=== PATIENT | female | born 1980 | race Caucasian/White ===

== ENCOUNTER 2016-11-06 16:38 | Emergency (ER) | payer SELFPAY ==
--- NOTE | 2016-11-06 17:43 | EDM.PDOC ---
ED HPI GENERAL MEDICAL PROBLEM - General Chief Complaint: General Stated Complaint: PT LIGHTHEADED Time Seen by Provider: 11/06/16 17:20 Source of Information: Reports: Patient History Limitations: Reports: No Limitations - History of Present Illness INITIAL COMMENTS - FREE TEXT/NARRATIVE: History of present illness: [36-year-old female comes in complaining of dizziness that subsequently led to nausea. Patient indicated that she felt the room was spinning and that when she moved her head it made it worse.] Review of systems: As per history of present illness and below otherwise all systems reviewed and negative. Past medical history: As per history of present illness and as reviewed below otherwise noncontributory. Surgical history: As per history of present illness and as reviewed below otherwise noncontributory. Social history: No reported history of drug or alcohol abuse. Family history: As per history of present illness and as reviewed below otherwise noncontributory. Physical exam: HEENT: Atraumatic, normocephalic, pupils reactive, negative for conjunctival pallor or scleral icterus, mucous membranes moist, bilateral TMs noted to be bulging with pearly pink with good light reflex otherwise, mild oral pharyngeal erythema with obvious postnasal drainage, neck supple, nontender, trachea midline. Lungs: Clear to auscultation, breath sounds equal bilaterally, chest nontender. Heart: S1S2, regular, negative for clicks, rubs, or JVD. Abdomen: Soft, nondistended, nontender. Negative for masses or hepatosplenomegaly. Negative for costovertebral tenderness. Pelvis: Stable nontender. Genitourinary: Deferred. Rectal: Deferred. Extremities: Atraumatic, negative for cords or calf pain. Neurovascular unremarkable. Neuro: Awake, alert, oriented. Cranial nerves II through XII unremarkable. Cerebellum unremarkable. Motor and sensory unremarkable throughout. Exam nonfocal. Diagnostics: [] Therapeutics: [] Impression: [Vertigo, nausea] Plan: [Meclizine, Antivert] Definitive disposition and diagnosis as appropriate pending reevaluation and review of above. head Pain Score (Numeric/FACES): 6 - Related Data Allergies Allergy/AdvReac Type Severity Reaction Status Date / Time No Known Allergies Allergy Verified 11/06/16 16:49 Home Meds: Home Meds Cyanocobalamin (Vitamin B-12) [B-12] 500 mcg PO 12/25/15 [History] ClonazePAM [KlonoPIN] 0.5 mg PO ASDIRECTED 11/06/16 [History] Fexofenadine [Ayse] 0 mg PO DAILY 11/06/16 [History] Meclizine [Antivert] 25 mg PO Q6H PRN #30 tablet 11/06/16 [Rx] Ondansetron [Zofran] 4 mg PO Q6H PRN #30 tab 11/06/16 [Rx] buPROPion HCl [Wellbutrin Xl] 300 mg PO DAILY 11/06/16 [History] Past Medical History - Past Health History Medical/Surgical History: Denies Medical/Surgical History Cardiovascular History: Reports: None Respiratory History: Reports: None Gastrointestinal History: Reports: None Genitourinary History: Reports: None Musculoskeletal History: Reports: None Neurological History: Reports: Migraines Psychiatric History: Reports: Anxiety, Depression Endocrine/Metabolic History: Reports: None Hematologic History: Reports: None Oncologic (Cancer) History: Reports: None Dermatologic History: Reports: None - Infectious Disease History Infectious Disease History: Reports: Chicken Pox - Past Surgical History HEENT Surgical History: Reports: Tonsillectomy Female Surgical History: Reports: Breast Reduction, Hysterectomy Social & Family History - Family History Family Medical History: Noncontributory - Tobacco Use Smoking Status *Q: Current Every Day Smoker Years of Tobacco use: 10 Packs/Tins Daily: 1 - Recreational Drug Use Recreational Drug Use: No ED ROS GENERAL - Review of Systems Review Of Systems: See Below (History of present illness) ED EXAM, GENERAL - Physical Exam Exam: See Below (See history of present illness) Course - Vital Signs Last Recorded V/S: Last Vital Signs Temp 36.9 C 11/06/16 16:52 Pulse 79 11/06/16 16:52 Resp 18 11/06/16 16:52 BP 111/74 11/06/16 16:52 Pulse Ox 96 11/06/16 16:52 Departure - Departure Time of Disposition: 17:41 Disposition: Home, Self-Care 01 Condition: Good Clinical Impression: Vertigo, Eustachian tube dysfunction - Discharge Information Prescriptions: Meclizine [Antivert] 25 mg PO Q6H PRN #30 tablet PRN Reason: vertigo Ondansetron [Zofran] 4 mg PO Q6H PRN #30 tab PRN Reason: Nausea Forms: ED Department Discharge Additional Instructions: The following information is given to patients seen in the emergency department who are being discharged to home. This information is to outline your options for follow-up care. We provide all patients seen in our emergency department with a follow-up referral. The need for follow-up, as well as the timing and circumstances, are variable depending upon the specifics of your emergency department visit. If you don't have a primary care physician on staff, we will provide you with a referral. We always advise you to contact your personal physician following an emergency department visit to inform them of the circumstance of the visit and for follow-up with them and/or the need for any referrals to a consulting specialist. The emergency department will also refer you to a specialist when appropriate. This referral assures that you have the opportunity for follow-up care with a specialist. All of these measure are taken in an effort to provide you with optimal care, which includes your follow-up. Under all circumstances we always encourage you to contact your private physician who remains a resource for coordinating your care. When calling for follow-up care, please make the office aware that this follow-up is from your recent emergency room visit. If for any reason you are refused follow-up, please contact the [facility] Emergency Department at and asked to speak to the emergency department charge nurse. Take medication as directed Follow-up with PCP in 1-2 days Return to ED as needed as discussed
== END 2016-11-06 17:54 | disposition home or self-care (01) ==
LOC: MW.ED 16:38
CPT/HCPCS: 99282; 99283

== ENCOUNTER 2017-01-24 23:01 | Emergency (ER) | payer SELFPAY ==
[2017-01-24] MEDS ORDERED: Amoxicillin 500 MG Cap PO ONE (23:20)
--- NOTE | 2017-01-24 23:23 | EDM.PDOC ---
ED HPI GENERAL MEDICAL PROBLEM - General Chief Complaint: ENT Problem Stated Complaint: PT HAS FLUID IN EAR Time Seen by Provider: 01/24/17 23:18 Source of Information: Reports: Patient, RN - History of Present Illness INITIAL COMMENTS - FREE TEXT/NARRATIVE: she presents with recent ear pain and sinus pressure and stuffy nose she has noted fever no vomiting Bilateral Ear Pain Score (Numeric/FACES): 5 - Related Data Allergies Allergy/AdvReac Type Severity Reaction Status Date / Time No Known Allergies Allergy Verified 01/24/17 23:15 Home Meds: Home Meds ClonazePAM [KlonoPIN] 0.5 mg PO DAILY PRN 11/06/16 [History] Past Medical History - Past Health History Medical/Surgical History: Denies Medical/Surgical History Cardiovascular History: Reports: None Respiratory History: Reports: None Gastrointestinal History: Reports: None Genitourinary History: Reports: None Musculoskeletal History: Reports: None Neurological History: Reports: Migraines Psychiatric History: Reports: Anxiety, Depression Endocrine/Metabolic History: Reports: None Hematologic History: Reports: None Oncologic (Cancer) History: Reports: None Dermatologic History: Reports: None - Infectious Disease History Infectious Disease History: Reports: Chicken Pox - Past Surgical History HEENT Surgical History: Reports: Tonsillectomy Female Surgical History: Reports: Breast Reduction, Hysterectomy Social & Family History - Family History Family Medical History: Noncontributory - Tobacco Use Smoking Status *Q: Current Every Day Smoker Years of Tobacco use: 10 Packs/Tins Daily: 1 - Recreational Drug Use Recreational Drug Use: No ED ROS ENT - Review of Systems Review Of Systems: See Below (as per HPI; no other complaints) ED EXAM, ENT - Physical Exam Exam: See Below Text/Narrative:: alert normal mentation lungs CTA oral cavity clear maxillary sinus tenderness bilaterallly Both TM's retracted ; otherwise normal Course - Vital Signs Last Recorded V/S: Last Vital Signs Temp 97.4 F 01/24/17 23:10 Pulse 89 01/24/17 23:10 Resp 17 01/24/17 23:10 BP 122/72 01/24/17 23:10 Pulse Ox 97 01/24/17 23:10 - Orders/Labs/Meds Orders: Active Orders 24 hr Category Date Time Status Amoxicillin [Amoxil] Med 01/24/17 23:20 Once 500 mg PO ONETIME ONE Medication Orders Amoxicillin (Amoxil) 500 mg PO ONETIME ONE Stop: 01/24/17 23:21 Meds: Medications Generic Name Dose Route Start Last Admin Trade Name Ernestina PRN Reason Stop Dose Admin Amoxicillin 500 mg 01/24/17 23:20 Amoxil PO 01/24/17 23:21 ONETIME ONE Departure - Departure Time of Disposition: 23:22 Disposition: Home, Self-Care 01 Condition: Good Clinical Impression: Acute maxillary sinusitis - Discharge Information Referrals: PCP,None [Primary Care Provider] - Additional Instructions: follow up if not improving over the next few days tylenol as needed for pain or fever - My Orders Last 24 Hours: My Active Orders 01/24/17 23:20 Amoxicillin [Amoxil] 500 mg PO ONETIME ONE - Assessment/Plan Last 24 Hours: My Active Orders 01/24/17 23:20 Amoxicillin [Amoxil] 500 mg PO ONETIME ONE
[2017-01-24 23:53] VITALS: BP 112/73
== END 2017-01-24 23:35 | disposition home or self-care (01) ==
LOC: MW.ED 23:01
DX: J01.00 Acute maxillary sinusitis, unspecified (principal)
CPT/HCPCS: 99283; A9270; 99282

== ENCOUNTER 2017-02-09 00:20 | Emergency (ER) | payer SELFPAY ==
[2017-02-09] MEDS ORDERED: Sodium Chloride 0.9% 1,000 ML IV ONE (00:22)
[2017-02-09] MEDS ORDERED: Ondansetron 4 MG/2 ML SDV IVPUSH ONE (00:22)
[2017-02-09] MEDS ORDERED: Morphine 2 MG/ML Syringe IVPUSH ONE (00:22)
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
[2017-02-09 01:04] LABS: CHLORIDE,CL 106 mmol/L (98-110); SODIUM,NA 140 mmol/L (136-146)
[2017-02-09] MEDS ORDERED: Morphine 10 MG/ML Syringe IV ONE (01:43)
[2017-02-09 02:58] VITALS: BP 109/63
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
--- NOTE | 2017-02-10 11:14 | CR ---
EXAM DATE: 02/09/17 PATIENT'S AGE: 36 Patient: ANNIE KNET Facility: [place], [place] Site . Site : 1980 Study: XRay Extremity Left FEMUR-02/09/2017 1:39:08 AM Ordering Physician: Doctor Moyer Final Report: INDICATION: Leg pain TECHNIQUE: Femur radiographs 2 views on 5 films COMPARISON: None FINDINGS: Bones: Alignment is normal. No acute fractures or aggressive osseous lesions seen. Joint spaces: The hip and visualized knee joints are unremarkable in appearance. Soft tissues: Unremarkable. No radiopaque foreign bodies are noted. IMPRESSION: 1. No acute osseous injuries are identified. Dictated by Jaime Reilly MD @ 02/09/2017 2:06:49 AM Dictated by: Jaime Reilly MD @ 02/09/2017 02:06:55 (Electronic Signature) Report Signed by Proxy. MARIA FARERI CHILDREN'S HOSPITALJessica
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
== END 2017-02-09 02:52 | disposition home or self-care (01) ==
LOC: MW.ED 00:20
DX: S77.12XA Crushing injury of left thigh, initial encounter (principal); S70.12XA Contusion of left thigh, initial encounter; F17.210 Nicotine dependence, cigarettes, uncomplicated; Z79.899 Other long term (current) drug therapy; W23.1XXA Caught, crushed, jammed, or pinched between stationary objects, initial encounter
CPT/HCPCS: 72170; 73552; 80053; 81001; 82550; 82553; 84484; 85025; 93005; 96361; 96374; 96375; 96376; 99283; J2270; J2405; J7040

== ENCOUNTER 2017-02-14 16:43 | Emergency (ER) | payer SELFPAY ==
[2017-02-14 17:01] VITALS: BP 117/78
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
== END 2017-02-14 18:35 | disposition home or self-care (01) ==
LOC: MW.ED 16:43
DX: S70.12XS Contusion of left thigh, sequela (principal); F17.210 Nicotine dependence, cigarettes, uncomplicated; Z79.899 Other long term (current) drug therapy; W22.8XXS Striking against or struck by other objects, sequela
CPT/HCPCS: 99283

== ENCOUNTER 2017-02-20 23:36 | Emergency (ER) | payer SELFPAY ==
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
[2017-02-21 01:03] VITALS: BP 128/82
== END 2017-02-21 00:12 | disposition home or self-care (01) ==
LOC: MW.ED 23:36
DX: S70.12XS Contusion of left thigh, sequela (principal); F17.210 Nicotine dependence, cigarettes, uncomplicated; W23 Caught, crushed, jammed or pinched in or between objects
CPT/HCPCS: 99282; 99283

== ENCOUNTER 2017-03-16 15:36 | Emergency (ER) | payer SELFPAY ==
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
[2017-03-16 16:46] VITALS: BP 130/80
== END 2017-03-16 16:45 | disposition home or self-care (01) ==
LOC: MW.ED 15:36
DX: S70.11XA Contusion of right thigh, initial encounter (principal); F17.210 Nicotine dependence, cigarettes, uncomplicated; Z79.899 Other long term (current) drug therapy; X58.XXXA Exposure to other specified factors, initial encounter
CPT/HCPCS: 99282

== ENCOUNTER 2017-06-20 07:49 | Day surgery (SDC) | payer OTHER ==
[~2017-06-20 07:49] MED LIST: Bupivacaine 25%/EPINEPHrine/PF 30 ML ONE; Midazolam 1 MG/ML 2 ML SDV ONE; Propofol 200 MG/20 ML SDV ONE; ceFAZolin/Dextrose,Iso-Osmotic 2 GM/50 ML Duplex Bag IV ONE; fentaNYL 100 MCG/2 ML SDV ONE
[2017-06-20] MEDS ORDERED: Bupivacaine 0.25%/EPINEPHrine 1:200,000 10 ML SDV INJECT ONE (08:00)
[2017-06-20] MEDS ORDERED: Acetaminophen/HYDROcodone 325-5 MG Tab PO PRN (08:00)
[2017-06-20] MEDS ORDERED: ceFAZolin 2 GM in Premix Bag 1 BAG IV ONE (08:00)
[2017-06-20] MEDS ORDERED: Lactated Ringers 1,000 ML IV SCH (08:00)
--- NOTE | 2017-06-20 08:21 | PCM.PREANE ---
Preanesthetic Assessment - Anesthesia/Transfusion/Family Hx Anesthesia History: Prior Anesthesia Without Reaction Family History of Anesthesia Reaction: No Transfusion History: Prior Transfusion Without Reaction Intubation History: Unknown - Review of Systems General: No Symptoms Pulmonary: No Symptoms Cardiovascular: No Symptoms Gastrointestinal: No Symptoms Neurological: No Symptoms Other: Reports: None - Physical Assessment Height: 1.78 m Weight: 83.915 kg ASA Class: 2 Mental Status: Alert & Oriented x3 Airway Class: Mallampati = 2 Dentition: Reports: Normal Dentition Thyro-Mental Finger Breadths: 3 Mouth Opening Finger Breadths: 3 ROM/Head Extension: Full Lungs: Clear to Auscultation, Normal Respiratory Effort Cardiovascular: Regular Rate, Regular Rhythm - Lab Values: Laboratory Last Values Urine HCG, Qual NEGATIVE (NEGATIVE) 06/20/17 07:53 - Allergies Allergies/Adverse Reactions: Allergies Allergy/AdvReac Type Severity Reaction Status Date / Time No Known Allergies Allergy Verified 06/17/17 08:25 - Blood Blood Available: No - Anesthesia Plan Pre-Op Medication Ordered: None - Acknowledgements Anesthesia Type Planned: General Anesthesia Pt an Appropriate Candidate for the Planned Anesthesia: Yes Alternatives and Risks of Anesthesia Discussed w Pt/Guardian: Yes Pt/Guardian Understands and Agrees with Anesthesia Plan: Yes PreAnesthesia Questionnaire - Past Health History Medical/Surgical History: Denies Medical/Surgical History HEENT History: Reports: None Cardiovascular History: Reports: None Respiratory History: Reports: None Gastrointestinal History: Reports: None Genitourinary History: Reports: None 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: Musculoskeletal History: Reports: Fracture Other Musculoskeletal History: hx fx rt arm Neurological History: Reports: None Psychiatric History: Reports: Anxiety, Depression Endocrine/Metabolic History: Reports: None Hematologic History: Reports: Blood Transfusion(s) Immunologic History: Reports: None Oncologic (Cancer) History: Reports: None Dermatologic History: Reports: None - Infectious Disease History Infectious Disease History: Reports: Chicken Pox - Past Surgical History Head Surgeries/Procedures: Reports: None HEENT Surgical History: Reports: Oral Surgery, Tonsillectomy Cardiovascular Surgical History: Reports: None Respiratory Surgical History: Reports: None GI Surgical History: Reports: None Female Surgical History: Reports: Breast Reduction, Hysterectomy Other Female Surgeries/Procedures: breast reduction than breast implants Endocrine Surgical History: Reports: None Neurological Surgical History: Reports: None Musculoskeletal Surgical History: Reports: None Oncologic Surgical History: Reports: None - SUBSTANCE USE Smoking Status *Q: Current Every Day Smoker (4-5 cigarettes per day) Tobacco Use Within Last Twelve Months: Cigarettes Recreational Drug Use History: No - HOME MEDS Home Medications: Home Meds Ibuprofen 800 mg PO DAILY 03/16/17 [History] ClonazePAM [KlonoPIN] 1 tab PO ASDIRECTED PRN 06/17/17 [History] - CURRENT (IN HOUSE) MEDS Current Meds: Current Medications Hydrocodone Bitart/Acetaminophen ([place] 325-5 Mg) 1 tab PO Q4H PRN PRN Reason: Pain Cefazolin Sodium/Dextrose 2 gm (/ Premix) 50 mls @ 100 mls/hr IV ONETIME ONE Stop: 06/20/17 08:29 Lactated Ringer's (Ringers, Lactated) 1,000 mls @ 500 mls/hr IV .BOLUS ALEXA Discontinued Medications Bupivacaine HCl/Epinephrine Bitart (Marcaine 0.25%/Epinephrine 1:200,000) 10 ml INJECT ONETIME ONE Stop: 06/20/17 08:01 Cefazolin Sodium/Dextrose (Ancef) Confirm Administered Dose 2 gm IV .STK-MED ONE Stop: 06/20/17 07:28 Fentanyl (Sublimaze) Confirm Administered Dose 100 mcg .ROUTE .STK-MED ONE Stop: 06/20/17 07:06 Bupivacaine HCl/Epinephrine Bitart (Sensorc Mpf 0.25%-Epi 1:057411) Confirm Administered Dose 30 mls @ as directed .ROUTE .STK-MED ONE Stop: 06/20/17 07:32 Lidocaine HCl (Xylocaine-Mpf 1%) Confirm Administered Dose 5 ml .ROUTE .STK-MED ONE Stop: 06/20/17 07:06 Midazolam HCl (Versed 1 Mg/Ml) Confirm Administered Dose 2 mg .ROUTE .STK-MED ONE Stop: 06/20/17 07:06 Propofol (Diprivan 20 Ml) Confirm Administered Dose 200 mg .ROUTE .STK-MED ONE Stop: 06/20/17 07:05
[2017-06-20] MEDS ORDERED: Dexamethasone 4 MG/ML 5 ML MDV ONE (08:51)
[2017-06-20] MEDS ORDERED: Ondansetron 4 MG/2 ML SDV ONE (08:51)
[2017-06-20] MEDS ORDERED: fentaNYL 100 MCG/2 ML SDV IVPUSH PRN (09:26)
[2017-06-20] MEDS ORDERED: fentaNYL 100 MCG/2 ML SDV ONE (10:44)
--- NOTE | 2017-06-20 11:26 | PCM.POSTAN ---
POST ANESTHESIA ASSESSMENT - MENTAL STATUS Mental Status: Alert, Oriented - RESPIRATORY Respiratory Status: Respiratory Rate WNL, Airway Patent, O2 Saturation Stable - CARDIOVASCULAR CV Status: Pulse Rate WNL, Blood Pressure Stable - GASTROINTESTINAL GI Status: No Symptoms - PAIN Pain Score: 3 - POST OP HYDRATION Hydration Status: Adequate & Stable - OBSERVATIONS Free Text/Narrative:: no anesthesia problems
--- NOTE | 2017-06-20 12:30 | PCM48HPAN ---
Post Anesthesia Note - EVALUATION WITHIN 48HRS OF ANESTHETIC Vital Signs in Normal Range: Yes Patient Participated in Evaluation: Yes Respiratory Function Stable: Yes Airway Patent: Yes Cardiovascular Function Stable: Yes Hydration Status Stable: Yes Pain Control Satisfactory: Yes Nausea and Vomiting Control Satisfactory: Yes Mental Status Recovered: Yes Resp Rate: 13 - COMMENTS/OBSERVATIONS Free Text/Narrative:: no anesthesia problems
[2017-06-20 12:31] VITALS: BP 107/67
--- NOTE | 2017-06-20 15:10 | PCM.OPNOTE ---
- General Post-Op/Procedure Note Date of Surgery/Procedure: 06/20/17 Operative Procedure(s): Irrigation and debridement of deep left thigh old hematoma - complicated. Pre Op Diagnosis: left thigh old hematoma Post-Op Diagnosis: Same Anesthesia Technique: General LMA, Local Primary Surgeon: Helen Cardenas Certified Pharmacist Assistant: Marizol Stephen Complications: None Condition: Good Free Text/Narrative:: Intake & Output 06/19/17 06/20/17 06/20/17 23:59 07:59 15:59 Intake Total 1300 Balance 1300
--- NOTE | 2017-06-24 22:12 | OR ---
SURGEON: KIMBERLY WILLINGHAM MD DATE OF PROCEDURE: 06/20/2017 PREOPERATIVE DIAGNOSIS: Left thigh old hematoma with significant fat necrosis. POSTOPERATIVE DIAGNOSIS: Left thigh old hematoma with significant fat necrosis. PROCEDURE: Irrigation and debridement as well as excision of fat necrosis of the left thigh old hematoma complicated. COMPOTYPE OPERATOR: ZEB Rand INDICATIONS: Ms. Beltran is a 37-year-old female with a previous hematoma that was quite large to the left leg. She now has a fluid accumulation laterally and a large area of fat necrosis with likely old hematoma medially. We discussed risks and benefits of excision of the and nonviable tissue as well as removal of the seroma and any other abnormal tissues. She would like to proceed. Risks were including, but not limited to, bleeding, infection, damage to underlying or overlying structures, possible need for future interventions, and possible scarring. She does understand that the contour after this would likely not be ideal given the significant trauma to the area. We will allow healing prior to any sort of other intervention. Informed consent obtained. PROCEDURE IN DETAIL: After informed consent was obtained and placed on the chart, the patient was brought to the operating room, laid in supine position. After adequate general anesthesia was obtained, the area was prepped and draped, and a time-out was completed to confirm side and site. Attention was then paid to the medial dissection with a longitudinal incision as planned. Dissection was carried circumferentially around the area of fat necrosis and this was excised and disposed. Meticulous hemostasis was obtained, and small amount of undermining to allow closure of the space were completed. A size 7 TANNER drain was placed into the area, brought out a separate hole and sutured in place. The skin was then closed with deep 2-0 PDS Stratafix sutures, superficial 3-0 Monocryl Stratafix for the dermis, and a running 4-0 Stratafix subcuticular for the skin. Total length of closure was 7 cm complex closure. Attention was then paid to the lateral area, and a 15 blade was used to dissect through skin and subcutaneous tissues again. Large seroma was located here. Several small balls of devascularized and free-floating fat that had been scarred off were easily expressed from the area. Once adequately removed again, meticulous hemostasis was obtained. The area was copiously irrigated, and a small amount of undermining was completed to allow appropriate contour of the tissues to hopefully fill the space. Again, a size 7 TANNER drain was placed and brought out the inferior aspect of the incision. This was sutured in place. The wound was closed using deep 2-0 PDS Stratafix, deep 3-0 running Monocryl Stratafix, and a subcuticular 4-0 Monocryl Stratafix. The patient tolerated this well, and all counts and needles were correct at the end of the case. The wound was dressed with a compression dressing and ABDs. FOLLOWUP INSTRUCTIONS: The patient will see us in clinic next week for possible drain removal and will take Keflex while drains are in place. She was also given a prescription for pain control as needed. HEGGTHE / EZEQUIEL /[id number]
== END 2017-06-20 12:24 | disposition home or self-care (01) ==
LOC: MW.SDS 07:49
PROVIDERS: ATTEND Plastic Surgery
DX: L76.32 Postprocedural hematoma of skin and subcutaneous tissue following other procedure (principal); M79.89 Other specified soft tissue disorders; Z79.899 Other long term (current) drug therapy; F17.200 Nicotine dependence, unspecified, uncomplicated
CPT/HCPCS: 10140; 11042; 81025; A9270; J0690; J1100; J2250; J2405; J3010; J7120; 00400; J2704

== ENCOUNTER 2017-10-24 16:16 | Emergency (ER) | payer BC ==
[2017-10-24 16:28] VITALS: BP 141/94
--- NOTE | 2017-10-24 16:41 | EDM.PDOC ---
ED HPI GENERAL MEDICAL PROBLEM - General Chief Complaint: Upper Extremity Injury/Pain Stated Complaint: FINGER ON RT HAND INFECTED Time Seen by Provider: 10/24/17 16:23 Source of Information: Reports: Patient History Limitations: Reports: No Limitations - History of Present Illness INITIAL COMMENTS - FREE TEXT/NARRATIVE: History of present illness: []Patient has had an infection of her right index finger cuticle for several months. She has fake nails on it and this is a recurrent problem. She feels that it is spreading. Review of systems: As per history of present illness and below otherwise all systems reviewed and negative. Past medical history: As per history of present illness and as reviewed below otherwise noncontributory. Surgical history: As per history of present illness and as reviewed below otherwise noncontributory. Social history: No reported history of drug or alcohol abuse. Family history: As per history of present illness and as reviewed below otherwise noncontributory. Physical exam: General: Well developed, well nourished in NAD HEENT: Atraumatic, normocephalic, pupils reactive, negative for conjunctival pallor or scleral icterus, mucous membranes moist, throat clear, neck supple, nontender, trachea midline. Lungs: Clear to auscultation, breath sounds equal bilaterally, chest nontender. Heart: S1S2, regular, negative for clicks, rubs, or JVD. Abdomen: Soft, nondistended, nontender. Negative for masses or hepatosplenomegaly. Negative for costovertebral tenderness. Pelvis: Stable nontender. Genitourinary: Deferred. Rectal: Deferred. Extremities: Right index finger with cuticle that is raised, inflamed erythematous, without purulent drainage or proximal spread. negative for cords or calf pain. Neurovascular unremarkable. Neuro: Awake, alert, oriented. Cranial nerves II through XII unremarkable. Cerebellum unremarkable. Motor and sensory unremarkable throughout. Exam nonfocal. Diagnostics: [] Therapeutics: [] Impression: []Chronic paronychia Plan: []Warm soaks help with PMD as needed Definitive disposition and diagnosis as appropriate pending reevaluation and review of above. right index finger Pain Score (Numeric/FACES): 4 - Related Data Allergies Allergy/AdvReac Type Severity Reaction Status Date / Time No Known Allergies Allergy Verified 10/24/17 16:25 Home Meds: Home Meds . 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: Musculoskeletal History: Reports: Fracture Other Musculoskeletal History: hx fx rt arm Neurological History: Reports: None Psychiatric History: Reports: Anxiety, Depression Endocrine/Metabolic History: Reports: None Hematologic History: Reports: Blood Transfusion(s) Immunologic History: Reports: None Oncologic (Cancer) History: Reports: None Dermatologic History: Reports: None - Infectious Disease History Infectious Disease History: Reports: Chicken Pox - Past Surgical History Head Surgeries/Procedures: Reports: None HEENT Surgical History: Reports: Oral Surgery, Tonsillectomy Cardiovascular Surgical History: Reports: None Respiratory Surgical History: Reports: None GI Surgical History: Reports: None Female Surgical History: Reports: Breast Reduction, Hysterectomy Other Female Surgeries/Procedures: breast reduction than breast implants Endocrine Surgical History: Reports: None Neurological Surgical History: Reports: None Musculoskeletal Surgical History: Reports: None Oncologic Surgical History: Reports: None Social & Family History - Family History Family Medical History: Noncontributory - Tobacco Use Smoking Status *Q: Current Every Day Smoker Years of Tobacco use: 10 Packs/Tins Daily: 0.5 - Caffeine Use Caffeine Use: Reports: None Caffeine Use Comment: 3cups/day - Recreational Drug Use Recreational Drug Use: No Review of Systems - Review of Systems Review Of Systems: See Below (See history of present illness) ED EXAM, GENERAL - Physical Exam Exam: See Below (See history of present illness) Course - Vital Signs Last Recorded V/S: Last Vital Signs Temp 97.1 F 10/24/17 16:26 Pulse 80 10/24/17 16:26 Resp 18 10/24/17 16:26 BP 141/94 H 10/24/17 16:26 Pulse Ox 99 10/24/17 16:26 Departure - Departure Time of Disposition: 16:41 Disposition: Home, Self-Care 01 Condition: Good Clinical Impression: Chronic paronychia of finger of right hand - Discharge Information Referrals: PCP,None [Primary Care Provider] - Additional Instructions: The following information is given to patients seen in the emergency department who are being discharged to home. This information is to outline your options for follow-up care. We provide all patients seen in our emergency department with a follow-up referral. The need for follow-up, as well as the timing and circumstances, are variable depending upon the specifics of your emergency department visit. If you don't have a primary care physician on staff, we will provide you with a referral. We always advise you to contact your personal physician following an emergency department visit to inform them of the circumstance of the visit and for follow-up with them and/or the need for any referrals to a consulting specialist. The emergency department will also refer you to a specialist when appropriate. This referral assures that you have the opportunity for follow-up care with a specialist. All of these measure are taken in an effort to provide you with optimal care, which includes your follow-up. Under all circumstances we always encourage you to contact your private physician who remains a resource for coordinating your care. When calling for follow-up care, please make the office aware that this follow-up is from your recent emergency room visit. If for any reason you are refused follow-up, please contact the [facility] Emergency Department at and asked to speak to the emergency department charge nurse. [facility] [address] [place] [id number]
== END 2017-10-24 16:59 | disposition home or self-care (01) ==
LOC: MW.ED 16:16
DX: L03.011 Cellulitis of right finger (principal); F17.210 Nicotine dependence, cigarettes, uncomplicated
CPT/HCPCS: 99283

== ENCOUNTER 2017-12-19 14:35 | Emergency (ER) | payer BC ==
--- NOTE | 2017-12-19 15:10 | EDM.PDOC ---
ED HPI GENERAL MEDICAL PROBLEM - General Chief Complaint: ENT Problem Stated Complaint: SORE THROAT Time Seen by Provider: 12/19/17 15:10 Source of Information: Reports: Patient - History of Present Illness INITIAL COMMENTS - FREE TEXT/NARRATIVE: HISTORY AND PHYSICAL: History of present illness: [Patient has sore throat increasing in severity over the last week no fever nausea vomiting chills sweats at current that she has had intermittent subjective fever and myalgias Some difficulty with solid food no difficulty with liquid, no muffled voice drooling or trismus] Review of systems: As per history of present illness and below otherwise all systems reviewed and negative. Past medical history: As per history of present illness and as reviewed below otherwise noncontributory. Surgical history: As per history of present illness and as reviewed below otherwise noncontributory. Social history: No reported history of drug or alcohol abuse. Family history: As per history of present illness and as reviewed below otherwise noncontributory. Physical exam: HEENT: Atraumatic, normocephalic, pupils reactive, negative for conjunctival pallor or scleral icterus, mucous membranes moist, throat clear, neck supple, nontender, trachea midline. Uttered erythema oropharynx no exudates Lungs: Clear to auscultation, breath sounds equal bilaterally, chest nontender. Heart: S1S2, regular, negative for clicks, rubs, or JVD. Abdomen: Soft, nondistended, nontender. Negative for masses or hepatosplenomegaly. Negative for costovertebral tenderness. Pelvis: Stable nontender. Genitourinary: Deferred. Rectal: Deferred. Extremities: Atraumatic, negative for cords or calf pain. Neurovascular unremarkable. Neuro: Awake, alert, oriented. Cranial nerves II through XII unremarkable. Cerebellum unremarkable. Motor and sensory unremarkable throughout. Exam nonfocal. Diagnostics: [Rapid strep ] Therapeutics: [Oxacillin 875 by mouth twice a day #20 no refill ] Impression: [] acute pharyngitis Definitive disposition and diagnosis as appropriate pending reevaluation and review of above. throat Pain Score (Numeric/FACES): 4 - Related Data Allergies Allergy/AdvReac Type Severity Reaction Status Date / Time No Known Allergies Allergy Verified 12/19/17 15:15 Home Meds: Home Meds ClonazePAM [KlonoPIN] 0.5 mg PO ASDIRECTED PRN 12/19/17 [History] Fexofenadine/Pseudoephedrine [Ayse-D 12 Hour Tablet] 1 tab PO BID 12/19/17 [ History] Past Medical History - Past Health History Medical/Surgical History: Denies Medical/Surgical History HEENT History: Reports: None Cardiovascular History: Reports: None Respiratory History: Reports: None Gastrointestinal History: Reports: None Genitourinary History: Reports: None 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: Musculoskeletal History: Reports: Fracture Other Musculoskeletal History: hx fx rt arm Neurological History: Reports: None Psychiatric History: Reports: Anxiety, Depression Endocrine/Metabolic History: Reports: None Hematologic History: Reports: Blood Transfusion(s) Immunologic History: Reports: None Oncologic (Cancer) History: Reports: None Dermatologic History: Reports: None - Infectious Disease History Infectious Disease History: Reports: Chicken Pox - Past Surgical History Head Surgeries/Procedures: Reports: None HEENT Surgical History: Reports: Oral Surgery, Tonsillectomy Cardiovascular Surgical History: Reports: None Respiratory Surgical History: Reports: None GI Surgical History: Reports: None Female Surgical History: Reports: Breast Reduction, Hysterectomy Other Female Surgeries/Procedures: breast reduction than breast implants Endocrine Surgical History: Reports: None Neurological Surgical History: Reports: None Musculoskeletal Surgical History: Reports: None Oncologic Surgical History: Reports: None Social & Family History - Family History Family Medical History: Noncontributory - Caffeine Use Caffeine Use: Reports: None Caffeine Use Comment: 3cups/day ED ROS GENERAL - Review of Systems Review Of Systems: See Below ED EXAM, GENERAL - Physical Exam Exam: See Below Course - Vital Signs Last Recorded V/S: Last Vital Signs Temp 97.8 F 12/19/17 15:16 Pulse 75 12/19/17 15:16 Resp 16 12/19/17 15:16 BP 121/72 12/19/17 15:16 Pulse Ox 97 12/19/17 15:16 - Orders/Labs/Meds Orders: Active Orders 24 hr Category Date Time Status STREP SCRN A RAPID W CULT CONF [RM] Stat Lab 12/19/17 14:37 Ordered Departure - Departure Time of Disposition: 15:23 Disposition: Home, Self-Care 01 Condition: Good Clinical Impression: Pharyngitis - Discharge Information Referrals: PCP,None [Primary Care Provider] - Forms: ED Department Discharge Additional Instructions: The following information is given to patients seen in the emergency department who are being discharged to home. This information is to outline your options for follow-up care. We provide all patients seen in our emergency department with a follow-up referral. The need for follow-up, as well as the timing and circumstances, are variable depending upon the specifics of your emergency department visit. If you don't have a primary care physician on staff, we will provide you with a referral. We always advise you to contact your personal physician following an emergency department visit to inform them of the circumstance of the visit and for follow-up with them and/or the need for any referrals to a consulting specialist. The emergency department will also refer you to a specialist when appropriate. This referral assures that you have the opportunity for follow-up care with a specialist. All of these measure are taken in an effort to provide you with optimal care, which includes your follow-up. Under all circumstances we always encourage you to contact your private physician who remains a resource for coordinating your care. When calling for follow-up care, please make the office aware that this follow-up is from your recent emergency room visit. If for any reason you are refused follow-up, please contact the [facility] emergency department at and asked to speak to the emergency department charge nurse. - My Orders Last 24 Hours: My Active Orders 12/19/17 14:37 STREP SCRN A RAPID W CULT CONF [RM] Stat - Assessment/Plan Last 24 Hours: My Active Orders 12/19/17 14:37 STREP SCRN A RAPID W CULT CONF [RM] Stat
[2017-12-19 15:21] VITALS: BP 121/72
== END 2017-12-19 15:55 | disposition home or self-care (01) ==
LOC: MW.ED 14:35
DX: J02.9 Acute pharyngitis, unspecified (principal)
CPT/HCPCS: 87081; 87880-QW; 99283

== ENCOUNTER 2021-05-09 19:40 | Emergency (ER) | payer BC, MEDICAID ==
[2021-05-09] MEDS ORDERED: Acetaminophen 500 MG Tab PO ONE (20:31)
[2021-05-09 20:54] LABS: CORONAVIRUS COVID-19 NAA NEGATIVE (NEGATIVE); INFLUENZA A NAA NEGATIVE (NEGATIVE); INFLUENZA B NAA NEGATIVE (NEGATIVE)
--- NOTE | 2021-05-09 20:57 | EDM.PDOC ---
ED HPI GENERAL MEDICAL PROBLEM - General Chief Complaint: General Stated Complaint: WARM BODY TEMP,BODY ACHES Time Seen by Provider: 05/09/21 20:01 - History of Present Illness INITIAL COMMENTS - FREE TEXT/NARRATIVE: CHIEF COMPLAINT(S): Body aches HISTORY OF PRESENT ILLNESS: This is a 40-year-old woman without any significant past medical history who comes to the emergency department with a chief complaint of body aches. The patient states that starting yesterday she started to experience body aches throughout her body and felt hot in her face but did not know she had a fever. She states that she has been more fatigued and slept throughout the entire evening. She states that she had associated runny nose and sore throat which she describes as itchy. She denies any drooling, trismus or stridor. She denies any trouble eating, trouble swallowing and states that she is tolerating p.o. without any difficulty. She states that she does not have any chest pain or shortness of breath and denies any cough. She states that [facility] and they were concerned that she may have Covid so she is here for a Covid test. She states that she is fully vaccinated but has not yet gotten her booster shot. She has not yet tried anything for pain. REVIEW OF SYSTEMS: Constitutional: Positive for subjective fever. Denies chills Eyes: Denies eye pain Ears, Nose, Mouth, & Throat: Positive for sore throat. Denies earache Cardiovascular: Denies chest pain Respiratory: Denies shortness of breath, cough Gastrointestinal: Denies Nausea, vomiting, diarrhea, hematochezia. Genitourinary: Denies hematuria Skin:Denies a rash MSK: Positive for body aches Neurological: Denies blurred vision Psychiatric: Denies depression PAST MEDICAL HISTORY: As per history of present illness and as reviewed below otherwise noncontributory. SURGICAL HISTORY: As per history of present illness and as reviewed below otherwise noncontributory. SOCIAL HISTORY: As per history of present illness and as reviewed below oth erwise noncontributory. FAMILY HISTORY: As per history of present illness and as reviewed below otherwise noncontributory. EXAMINATION OF ORGAN SYSTEMS/BODY AREAS: Constitutional: Blood pressure is 147/91, heart rate 97, respiratory rate 20 with an oxygen saturation of 100 on room air. Temperature 36.1 General: Well-appearing woman who is in no acute distress Psychiatric: Appropriate mood and affect. Eyes: No scleral icterus or conjunctival erythema ENMT: Moist mucous membranes. No pharyngeal erythema no tonsillar exudates or swelling. Clear nasal drainage. Bilateral tympanic membranes have any bulging erythema cardiovascular: Regular, rate, and rhythm. No gallops, murmurs, or rubs. Bilateral upper extremity pulses symmetric and intact. No peripheral edema. No JVD. Respiratory: Lungs clear to auscultation bilaterally. No wheezes, rales, or rhonchi. Gastrointestinal: Soft, non-tender, non-distended. Normoactive bowel sounds Genitourinary: No suprapubic tenderness Musculoskeletal: Normal range of motion. Skin: No lesions or abrasions. Neurological: Alert, GCS 15 MEDICAL DECISION MAKING AND COURSE IN THE ED WITH INTERPRETATION/REVIEW OF DIAGNOSTIC STUDIES: This is a 40-year-old woman without any significant past medical history who is fully vaccinated who comes to the emergency department with sore throat, body aches and subjective fevers with runny nose. At this time I do suspect viral etiology. Given the [facility] concern we will obtain a Covid and influenza swab. We will provide the patient with Tylenol. I do not believe any further labs or imaging are indicated. Laboratory: Covid and influenza are negative. After the lab I did discuss the results with the patient. At this time I discussed the use of Tylenol and Motrin. I do believe this is secondary to a viral URI. She was given strict return precautions. She was amenable discharge and had no further questions . DISPOSITION: The patient was discharged home in stable condition. The patient will follow up with primary care physician in 3 to 5 days CONDITION: Fair PROCEDURES: None FINAL IMPRESSION(S)/DIAGNOSES: 1. Acute viral URI Vitor Huerta M.D. Abdominal Pain Score (Numeric/FACES): 7 - Related Data Allergies Allergy/AdvReac Type Severity Reaction Status Date / Time No Known Allergies Allergy Verified 05/09/21 20:07 Home Meds: Home Meds buPROPion [Wellbutrin SR] 150 mg PO 05/09/21 [History] Past Medical History - Past Health History Medical/Surgical History: Denies Medical/Surgical History HEENT History: Reports: None Cardiovascular History: Reports: None Respiratory History: Reports: None Gastrointestinal History: Reports: None Genitourinary History: Reports: None PROFESSIONAL [employer] History: Reports: Musculoskeletal History: Reports: Fracture Other Musculoskeletal History: hx fx rt arm Neurological History: Reports: None Psychiatric History: Reports: Anxiety, Depression Endocrine/Metabolic History: Reports: None Hematologic History: Reports: Blood Transfusion(s) Immunologic History: Reports: None Oncologic (Cancer) History: Reports: None Dermatologic History: Reports: None - Infectious Disease History Infectious Disease History: Reports: Chicken Pox - Past Surgical History Head Surgeries/Procedures: Reports: None HEENT Surgical History: Reports: Oral Surgery, Tonsillectomy Cardiovascular Surgical History: Reports: None Respiratory Surgical History: Reports: None GI Surgical History: Reports: None Female Surgical History: Reports: Breast Reduction, Hysterectomy Other Female Surgeries/Procedures: breast reduction than breast implants Endocrine Surgical History: Reports: None Neurological Surgical History: Reports: None Musculoskeletal Surgical History: Reports: None Oncologic Surgical History: Reports: None Social & Family History - Family History Family Medical History: No Pertinent Family History - Tobacco Use Second Hand Smoke Exposure: No - Caffeine Use Caffeine Use: Reports: None Caffeine Use Comment: 3cups/day - Recreational Drug Use Recreational Drug Use: No ED ROS GENERAL - Review of Systems Review Of Systems: See Below ED EXAM, GENERAL - Physical Exam Exam: See Below Course - Vital Signs Last Recorded V/S: Last Vital Signs Temp 36.1 C 05/09/21 20:01 Pulse 96 05/09/21 21:06 Resp 20 05/09/21 20:01 BP 135/91 H 05/09/21 21:06 Pulse Ox 98 05/09/21 21:06 - Orders/Labs/Meds Labs: Laboratory Tests 05/09/21 Range/Units 20:10 Influenza Type A RNA NEGATIVE (NEGATIVE) Influenza Type B RNA NEGATIVE (NEGATIVE) SARS-CoV-2 RNA ([facility]) NEGATIVE (NEGATIVE) Meds: Medications Discontinued Medications Generic Name Dose Route Start Last Admin Trade Name Freq PRN Reason Stop Dose Admin Acetaminophen 1,000 mg 05/09/21 20:31 05/09/21 20:47 Acetaminophen 500 Mg Tab PO 05/09/21 20:32 1,000 mg ONETIME ONE Administration Departure - Departure Time of Disposition: 20:56 Disposition: Home, Self-Care 01 Condition: Fair Clinical Impression: Viral URI - Discharge Information *PRESCRIPTION DRUG MONITORING PROGRAM REVIEWED*: No *COPY OF PRESCRIPTION DRUG MONITORING REPORT IN PATIENT EDEN: No Instructions: Upper Respiratory Infection, Adult, [id number] Forms: ED Department Discharge Additional Instructions: You were evaluated today on an emergent basis. At this time all of your vital signs are normal and your COVID-19 and influenza a and B swabs were negative. At this time I recommend that you use Tylenol and Motrin for your pain relief and continue to hydrate with fluids. If you have any worsening symptoms such as chest pain, shortness of breath I would like you to return to the emergency department. Please follow-up with primary care physician in 3 to 5 days [facility] [address] [place] [id number] [facility] [address] [place] [id number] The patient is informed of any results of their evaluation and diagnostic workup and all questions are answered. They are given discharge instructions and return precautions. The patient is stable for discharge. The patient states they understand and agree with the plan and that they will return if their symptoms get worse or if they have any new concerns. The following information is given to patients seen in the emergency department who are being discharged to home. This information is to outline your options for follow-up care. We provide all patients seen in our emergency department with a follow-up referral. The need for follow-up, as well as the timing and circumstances, are variable depending upon the specifics of your emergency department visit. If you don't have a primary care physician on staff, we will provide you with a referral. We always advise you to contact your personal physician following an emergency department visit to inform them of the circumstance of the visit and for follow-up with them and/or the need for any referrals to a consulting specialist. The emergency department will also refer you to a specialist when appropriate. This referral assures that you have the opportunity for follow-up care with a specialist. All of these measure are taken in an effort to provide you with optimal care, which includes your follow-up. Under all circumstances we always encourage you to contact your private physician who remains a resource for coordinating your care. When calling for follow-up care, please make the office aware that this follow-up is from your recent emergency room visit. If for any reason you are refused follow-up, please contact the [facility] Emergency Department at and asked to speak to the emergency department charge nurse. Sepsis Event Note (ED) - Evaluation Sepsis Screening Result: No Definite Risk - Focused Exam Vital Signs: Vital Signs Temp Pulse Resp BP Pulse Ox 05/09/21 21:06 96 135/91 H 98 05/09/21 20:01 36.1 C 97 20 147/91 H 100
[2021-05-09 21:07] VITALS: BP 135/91; PULSE 96
== END 2021-05-09 21:07 | disposition home or self-care (01) ==
LOC: MW.ED 19:40
DX: J06.9 Acute upper respiratory infection, unspecified (principal); Z20.822 Contact with and (suspected) exposure to COVID-19
CPT/HCPCS: 0240U; 99283; A9270

== ENCOUNTER 2021-06-13 11:33 | Emergency (ER) | payer MEDICAID ==
[2021-06-13] MEDS ORDERED: Octyl 2-Cyanoacrylate 1 Tube TOP ONE (11:38)
[2021-06-13] MEDS ORDERED: Diphtheria,Pertussis(Acell),Tetanus Vaccine 0.5 ML Syringe IM ONE (11:38)
[2021-06-13] MEDS ORDERED: Sodium Chloride 0.9% 1,000 ML IV SCH (11:45)
[2021-06-13] MEDS ORDERED: Ketorolac 30 MG/ML SDV IVPUSH ONE (12:43)
[2021-06-13 12:45] LABS: BLOOD UREA NITROGEN,BUN 13 mg/dL (7.0-18.0); CARBON DIOXIDE,CO2 30.5 mmol/L (21.0-32.0); CHLORIDE,CL 103 mmol/L (98-107); GLUCOSE RANDOM 109 mg/dL (74-106); POTASSIUM,K 4.2 mmol/L (3.5-5.1); SODIUM,NA 140 mmol/L (136-145)
[2021-06-13 12:50] LABS: CORONAVIRUS COVID-19 NAA POSITIVE (NEGATIVE); INFLUENZA A NAA NEGATIVE (NEGATIVE); INFLUENZA B NAA NEGATIVE (NEGATIVE)
[2021-06-13 13:35] VITALS: BP 121/79; PULSE 80
== END 2021-06-13 13:27 | disposition home or self-care (01) ==
LOC: MW.ED 11:33
DX: R55 Syncope and collapse (principal); S01.81XA Laceration without foreign body of other part of head, initial encounter; U07.1 COVID-19; Z23 Encounter for immunization; W18.30XA Fall on same level, unspecified, initial encounter
CPT/HCPCS: 0240U; 12011; 36415; 70450; 71045; 80053; 81003; 84484; 85025; 90471; 90715; 93005; 96374; 99285; A9270; J1885; J7030

== ENCOUNTER 2021-11-04 11:31 | Emergency (ER) | payer SELFPAY | END 2021-11-04 12:54 | disposition left against medical advice (07) | LOC: MW.ED 11:31 | DX: H92.09 Otalgia, unspecified ear (principal); Z53.21 Procedure and treatment not carried out due to patient leaving prior to being seen by health care provider ==

== ENCOUNTER 2022-03-07 18:06 | Emergency (ER) | payer MEDICAID | END 2022-03-07 22:00 | disposition left against medical advice (07) | LOC: MW.ED 18:06 | DX: Z53.21 Procedure and treatment not carried out due to patient leaving prior to being seen by health care provider (principal) ==

== ENCOUNTER 2022-05-18 02:16 | Emergency (ER) | payer MEDICAID ==
[2022-05-18 02:28] VITALS: BP 134/92; PULSE 107
[2022-05-18] MEDS ORDERED: Octyl 2-Cyanoacrylate 1 g/1 mL 1 APPLIC PEN TOP ONE (02:32)
== END 2022-05-18 03:00 ==
LOC: MW.ED 02:16
DX: S61.011A Laceration without foreign body of right thumb without damage to nail, initial encounter (principal); Z88.8 Allergy status to other drugs, medicaments and biological substances; W26.8XXA Contact with other sharp object(s), not elsewhere classified, initial encounter
CPT/HCPCS: 12001; 99283; J3490

== ENCOUNTER 2022-05-31 02:11 | Emergency (ER) | payer MEDICAID ==
[2022-05-31] MEDS ORDERED: Ondansetron 4 MG Tab.DIS PO ONE (02:20)
[2022-05-31 02:34] VITALS: BP 147/107; PULSE 90
== END 2022-05-31 02:40 | disposition home or self-care (01) ==
LOC: MW.ED 02:11
DX: Z02.89 Encounter for other administrative examinations (principal); Z88.5 Allergy status to narcotic agent
CPT/HCPCS: 82947; 99283; A9270; 99282

== ENCOUNTER 2022-06-29 01:34 | Emergency (ER) | payer MEDICAID ==
[2022-06-29 01:51] VITALS: PULSE 98
== END 2022-06-29 02:29 ==
LOC: MW.ED 01:34
DX: Z02.89 Encounter for other administrative examinations (principal); Z88.8 Allergy status to other drugs, medicaments and biological substances; Z79.899 Other long term (current) drug therapy; Z90.710 Acquired absence of both cervix and uterus
CPT/HCPCS: 99283

== ENCOUNTER 2022-10-31 05:18 | Emergency (ER) | payer MEDICAID ==
[2022-10-31] MEDS ORDERED: Ibuprofen 600 MG Tab PO ONE (05:37)
[2022-10-31] MEDS ORDERED: Acetaminophen/oxyCODONE 325-5 MG Tab PO ONE (06:18)
[2022-10-31 08:00] VITALS: BP 139/87; PULSE 76
== END 2022-10-31 07:58 | disposition home or self-care (01) ==
LOC: MW.ED 05:18
DX: S99.921A Unspecified injury of right foot, initial encounter (principal); Z88.8 Allergy status to other drugs, medicaments and biological substances
CPT/HCPCS: 73610; 73630; 99283; A9270

== ENCOUNTER 2022-11-25 17:06 | Emergency (ER) | payer MEDICAID ==
[2022-11-25 17:34] VITALS: BP 150/102; PULSE 103
== END 2022-11-25 17:33 ==
LOC: MW.ED 17:06
DX: S86.001A Unspecified injury of right Achilles tendon, initial encounter (principal); Z88.8 Allergy status to other drugs, medicaments and biological substances
CPT/HCPCS: 99282; 99283

== ENCOUNTER 2022-12-07 01:21 | Emergency (ER) | payer MEDICAID ==
[2022-12-07 02:18] VITALS: BP 117/78; PULSE 88
== END 2022-12-07 01:43 ==
LOC: MW.ED 01:21
DX: Z02.89 Encounter for other administrative examinations (principal); Z88.8 Allergy status to other drugs, medicaments and biological substances; Z79.899 Other long term (current) drug therapy
CPT/HCPCS: 99283

== ENCOUNTER 2024-05-15 16:41 | Emergency (ER) | payer MEDICAID ==
[2024-05-15 17:06] LABS: BASOPHILS ABSOLUTE AUTO 0.05 K/uL (0.00-0.20); BASOPHILS PERCENT AUTO 0.7 % (0.0-1.0); EOSINOPHILS ABSOLUTE AUTO 0.41 K/uL (0.00-0.45); EOSINOPHILS PERCENT AUTO 5.5 % (0.0-6.0); HEMATOCRIT 35.3 % (37.0-47.0); HEMOGLOBIN 11.7 g/dL (12.0-16.0); IMMATURE GRAN ABSOLUTE AUTO 0.02 K/uL (0.00-0.05); IMMATURE GRAN PERCENT AUTO 0.3 % (0.0-0.4); LYMPHOCYTES ABSOLUTE AUTO 1.23 K/uL (1.00-4.80); LYMPHOCYTES PERCENT AUTO 16.6 % (24.0-44.0); MEAN CORPUSCULAR HEMOGLOBIN 29.5 pg (28.0-32.0); MEAN CORPUSCULAR HGB CONC 33.1 g/dL (32.0-36.0); MEAN CORPUSCULAR VOLUME 89.1 fL (83.0-99.0); MEAN PLATELET VOLUME 10.2 fL (9.4-12.3); MONOCYTES ABSOLUTE AUTO 0.64 K/uL (0.00-0.80); MONOCYTES PERCENT AUTO 8.6 % (0.0-8.0); NEUTROPHILS ABSOLUTE AUTO 5.08 K/uL (1.80-7.70); NEUTROPHILS PERCENT AUTO 68.3 % (41.0-71.0); PLATELET COUNT,PLT 255 K/uL (150-400); RED BLOOD CELL COUNT 3.96 M/uL (4.10-5.30); WHITE BLOOD CELL COUNT,WBC 7.43 K/uL (3.9-11.3)
[2024-05-15 17:31] LABS: A/G RATIO 1.1 (0.9-1.6); ALANINE AMINOTRANSFERASE,ALT 25 IU/L (14-63); ALBUMIN 3.7 g/dL (3.4-5.0); ALKALINE PHOSPHATASE 93 U/L (46-116); ASPARTATE AMNIOTRANSFERASE,AST 30 IU/L (15-37); BILIRUBIN TOTAL 0.4 mg/dL (0.2-1.0); BLOOD UREA NITROGEN,BUN 18 mg/dL (7.0-18.0); CARBON DIOXIDE,CO2 27.3 mmol/L (21.0-32.0); CHLORIDE,CL 106 mmol/L (98-107); CREATININE 0.6 mg/dL (0.6-1.0); GLUCOSE RANDOM 91 mg/dL (74-106); POTASSIUM,K 3.6 mmol/L (3.5-5.1); SODIUM,NA 143 mmol/L (136-145)
[2024-05-15 17:32] LABS: ESTIMATED GFR 113 mL/min (>60)
[2024-05-15] MEDS: hydrALAZINE 10 MG Tab PO SCH (17:48)
[2024-05-15 19:01] VITALS: BP 188/95; PULSE 105
== END 2024-05-15 19:00 ==
LOC: MW.ED 16:41
DX: Z02.89 Encounter for other administrative examinations (principal); R03.0 Elevated blood-pressure reading, without diagnosis of hypertension; Z75.8 Other problems related to medical facilities and other health care; Z88.8 Allergy status to other drugs, medicaments and biological substances; Z79.899 Other long term (current) drug therapy; Z90.710 Acquired absence of both cervix and uterus
CPT/HCPCS: 36415; 80053; 84484; 84703; 85025; 93005; 99284; A9270; 93010; 99283

== ENCOUNTER 2024-06-12 22:32 | Emergency (ER) | payer MEDICAID ==
[2024-06-12] MEDS: Sodium Chloride 0.9% 1,000 ML IV ONE (23:23)
[2024-06-12] MEDS: LORazepam 2 MG/ML SDV IVPUSH ONE (23:24)
[2024-06-12] MEDS: Ketorolac 30 MG/ML SDV IVPUSH ONE (23:25)
[2024-06-12] MEDS: Ondansetron 4 MG/2 ML SDV IVPUSH ONE (23:28)
[2024-06-12] MEDS: Iopamidol 755 MG/ML 500 ML Multipack Bottle IVPUSH ONE (23:37)
[2024-06-12 23:59] LABS: A/G RATIO 1.3 (0.9-1.6); ALANINE AMINOTRANSFERASE,ALT 29 IU/L (14-63); ALBUMIN 4.2 g/dL (3.4-5.0); ALKALINE PHOSPHATASE 91 U/L (46-116); ASPARTATE AMNIOTRANSFERASE,AST 41 IU/L (15-37); BILIRUBIN TOTAL 0.8 mg/dL (0.2-1.0); BLOOD UREA NITROGEN,BUN 28 mg/dL (7.0-18.0); CALCIUM 9.5 mg/dL (8.5-10.1); CARBON DIOXIDE,CO2 23.3 mmol/L (21.0-32.0); CHLORIDE,CL 98 mmol/L (98-107); CREATININE 0.8 mg/dL (0.6-1.0); ESTIMATED GFR 93 mL/min (>60); GLUCOSE RANDOM 105 mg/dL (74-106); LIPASE 14 U/L (16-77); POTASSIUM,K 3.7 mmol/L (3.5-5.1); PROTEIN TOTAL,TP 7.4 g/dL (6.4-8.2); SODIUM,NA 137 mmol/L (136-145)
[2024-06-13 00:56] LABS: BASOPHILS ABSOLUTE AUTO 0.07 K/uL (0.00-0.20); BASOPHILS PERCENT AUTO 0.4 % (0.0-1.0); EOSINOPHILS ABSOLUTE AUTO 0.11 K/uL (0.00-0.45); EOSINOPHILS PERCENT AUTO 0.7 % (0.0-6.0); HEMATOCRIT 38.1 % (37.0-47.0); HEMOGLOBIN 12.9 g/dL (12.0-16.0); IMMATURE GRAN ABSOLUTE AUTO 0.04 K/uL (0.00-0.05); IMMATURE GRAN PERCENT AUTO 0.2 % (0.0-0.4); LYMPHOCYTES ABSOLUTE AUTO 0.95 K/uL (1.00-4.80); LYMPHOCYTES PERCENT AUTO 5.7 % (24.0-44.0); MEAN CORPUSCULAR HEMOGLOBIN 29.2 pg (28.0-32.0); MEAN CORPUSCULAR HGB CONC 33.9 g/dL (32.0-36.0); MEAN CORPUSCULAR VOLUME 86.2 fL (83.0-99.0); MEAN PLATELET VOLUME 10.4 fL (9.4-12.3); MONOCYTES PERCENT AUTO 8.5 % (0.0-8.0); NEUTROPHILS ABSOLUTE AUTO 13.99 K/uL (1.80-7.70); NEUTROPHILS PERCENT AUTO 84.5 % (41.0-71.0); PLATELET COUNT,PLT 260 K/uL (150-400); RED BLOOD CELL COUNT 4.42 M/uL (4.10-5.30); WHITE BLOOD CELL COUNT,WBC 16.56 K/uL (3.9-11.3)
[2024-06-13 01:21] LABS: BACTERIA,URINE RARE (NEGATIVE); BILIRUBIN,URINE NEGATIVE; EPITHELIAL CELLS,URINE RARE (NONE-FEW); GLUCOSE,URINE NEGATIVE; KETONES,URINE NEGATIVE; LEUKOCYTE ESTERASE,URINE NEGATIVE (NEGATIVE); NITRITE,URINE NEGATIVE (NEGATIVE); OCCULT BLOOD,URINE NEGATIVE; RBC,URINE 0-1 (0-2/HPF); UROBILINOGEN,URINE 0.2 (<1.0); WBC,URINE 0-1 (0-5/HPF)
[2024-06-13 01:22] LABS: APPEARANCE,URINE CLEAR; COLOR,URINE YELLOW; PROTEIN,URINE NEGATIVE
[2024-06-13 02:30] VITALS: BP 111/67; PULSE 98
== END 2024-06-13 02:28 | disposition home health service (06) ==
LOC: MW.ED 22:32
DX: R10.84 Generalized abdominal pain (principal); R11.2 Nausea with vomiting, unspecified; R19.7 Diarrhea, unspecified; Z88.8 Allergy status to other drugs, medicaments and biological substances; Z79.899 Other long term (current) drug therapy; Z90.710 Acquired absence of both cervix and uterus
CPT/HCPCS: 36415; 74177; 80048; 80076; 80307; 81001; 83690; 85025; 87428; 96361; 96374; 96375; 99284; J1885; J2060; J2405; J7030; Q9967

== ENCOUNTER 2024-06-18 03:04 | Emergency (ER) | payer MEDICAID ==
[2024-06-18 03:17] LABS: BASOPHILS ABSOLUTE AUTO 0.01 K/uL (0.00-0.20); BASOPHILS PERCENT AUTO 0.2 % (0.0-1.0); HEMATOCRIT 43.7 % (37.0-47.0); HEMOGLOBIN 14.4 g/dL (12.0-16.0); IMMATURE GRAN ABSOLUTE AUTO 0.02 K/uL (0.00-0.05); IMMATURE GRAN PERCENT AUTO 0.5 % (0.0-0.4); LYMPHOCYTES ABSOLUTE AUTO 0.51 K/uL (1.00-4.80); LYMPHOCYTES PERCENT AUTO 11.8 % (24.0-44.0); MEAN CORPUSCULAR HEMOGLOBIN 28.9 pg (28.0-32.0); MEAN CORPUSCULAR VOLUME 87.8 fL (83.0-99.0); MEAN PLATELET VOLUME 10.4 fL (9.4-12.3); MONOCYTES ABSOLUTE AUTO 0.33 K/uL (0.00-0.80); MONOCYTES PERCENT AUTO 7.6 % (0.0-8.0); NEUTROPHILS ABSOLUTE AUTO 3.46 K/uL (1.80-7.70); NEUTROPHILS PERCENT AUTO 79.9 % (41.0-71.0); PLATELET COUNT,PLT 219 K/uL (150-400); RED BLOOD CELL COUNT 4.98 M/uL (4.10-5.30); WHITE BLOOD CELL COUNT,WBC 4.33 K/uL (3.9-11.3)
[2024-06-18] MEDS: Sodium Chloride 0.9% 1,000 ML IV ONE (03:23)
[2024-06-18 04:07] LABS: A/G RATIO 0.8 (0.9-1.6); ALANINE AMINOTRANSFERASE,ALT 23 IU/L (14-63); ALKALINE PHOSPHATASE 77 U/L (46-116); ASPARTATE AMNIOTRANSFERASE,AST 32 IU/L (15-37); BILIRUBIN TOTAL 0.2 mg/dL (0.2-1.0); BLOOD UREA NITROGEN,BUN 14 mg/dL (7.0-18.0); CALCIUM 8.4 mg/dL (8.5-10.1); CARBON DIOXIDE,CO2 29.7 mmol/L (21.0-32.0); CHLORIDE,CL 98 mmol/L (98-107); GLUCOSE RANDOM 84 mg/dL (74-106); LIPASE 24 U/L (16-77); POTASSIUM,K 3.6 mmol/L (3.5-5.1); PROTEIN TOTAL,TP 6.7 g/dL (6.4-8.2); SODIUM,NA 137 mmol/L (136-145)
[2024-06-18 04:08] LABS: ESTIMATED GFR 71 mL/min (>60)
[2024-06-18] MEDS: cefTRIAXone 2 GM in Sodium Chloride 0.9% 50 ML IV ONE (04:11)
[2024-06-18] MEDS: Ketorolac 30 MG/ML SDV IVPUSH ONE (05:10)
[2024-06-18 07:24] VITALS: BP 128/90; PULSE 92
== END 2024-06-18 05:30 | disposition home or self-care (01) ==
LOC: MW.ED 03:04
DX: J10.1 Influenza due to other identified influenza virus with other respiratory manifestations (principal); H66.001 Acute suppurative otitis media without spontaneous rupture of ear drum, right ear; F17.210 Nicotine dependence, cigarettes, uncomplicated; Z79.899 Other long term (current) drug therapy; Z88.8 Allergy status to other drugs, medicaments and biological substances
CPT/HCPCS: 36415; 71045; 80048; 80076; 83690; 85025; 85379; 87428; 93005; J0696; J1885; J3490; J7030; 96361; 96365; 96375; 99285-25